=== PATIENT | female | born 1995 | race Caucasian/White ===

== ENCOUNTER 2021-06-10 08:00 | Outpatient (CLI) | payer BC ==
[2021-06-10 16:37] LABS: BILIRUBIN,URINE NEGATIVE (NEGATIVE); GLUCOSE, URINE (UA) NEGATIVE (NEGATIVE); KETONES,URINE (UA) NEGATIVE (NEGATIVE); LEUKOCYTE ESTERASE, URINE NEGATIVE (NEGATIVE); NITRITE,URINE NEGATIVE (NEGATIVE); OCCULT BLOOD,URINE NEGATIVE (NEGATIVE); PROTEIN,URINE NEGATIVE (NEGATIVE); UROBILINOGEN,URINE 0.2 (NORMAL) E.U./dL (NORMAL)
[2021-06-10 16:44] LABS: CLARITY,URINE CLEAR (CLEAR)
[2021-06-10 17:00] LABS: BACTERIA,URINE Moderate /HPF (None Seen); MUCUS,URINE Moderate Strands; RBC,URINE 0-5 /HPF (0-5); SQUAMOUS EPITHELIAL CELL,UR MOD Squamous (<= Few); WBC,URINE 0-3 /HPF (0-5)
== END 2021-06-10 18:55 | disposition home or self-care (01) ==
LOC: LAB.WC 08:00
PROVIDERS: ATTEND Obstetrics & Gynecology
DX: Z32.01 Encounter for pregnancy test, result positive (principal)
CPT/HCPCS: 81001; 87086

== ENCOUNTER 2021-06-20 13:45 | Outpatient (CLI) | payer BC ==
--- NOTE | 2021-06-23 16:22 | Ultrasound Report ---
PROCEDURE: OB First Trimester INDICATIONS: POSITIVE TEST OUTSIDE/PRIOR DATING DATA: Last menstrual period (LMP): 04/27/2021. LMP-based estimated date of delivery (STONE): 02/01/2022. First dating scan (date and location): 06/20/2021. Estimated date of delivery (STONE) from first dating scan: 01/30/2022. The below data below was generated using the ultrasound STONE of 01/30/2022 TECHNIQUE: Real-time scanning was performed of the fetus and maternal pelvic organs, with image documentation. COMPARISON: None FINDINGS: Embryo: [place]-rump length measures 1.58 cm, 8 weeks 0 days. Heart rate: 148/m Measurement variability in dating: +/- 4 weeks by LMP, +/- 7 days by mean sac diameter (use before 6 weeks gestation if crown-rump length not able to be measured), +/- 5 days by crown-rump length (6-12 weeks gestation). Maternal organs: Ovaries are unremarkable. IMPRESSION: Living first trimester intrauterine with crown-rump length and heart beat measuring 8 weeks 0 days Reviewed by: Ray Woodward MD on 06/23/2021 4:20 PM PDT Approved by: Ray Woodward MD on 06/23/2021 4:20 PM PDT Station ID: [id number]
== END 2021-06-20 13:46 | disposition home or self-care (01) ==
LOC: DI 13:45
PROVIDERS: ATTEND Obstetrics & Gynecology
DX: Z32.01 Encounter for pregnancy test, result positive (principal)

== ENCOUNTER 2021-07-08 12:37 | Outpatient (CLI) | payer BC ==
[2021-07-08 13:04] LABS: BASOPHILS # (AUTO) 0.1 10^3/uL (0.0-0.1); BASOPHILS % (AUTO) 0.7 %; EOSINOPHILS # (AUTO) 0.3 10^3/uL (0.0-0.7); EOSINOPHILS % (AUTO) 2.7 %; HCT - HEMATOCRIT 40.2 % (37.0-47.0); HGB - HEMOGLOBIN 13.7 g/dL (12.0-16.0); LYMPHOCYTES # (AUTO) 2.6 10^3/uL (1.5-3.5); LYMPHOCYTES % (AUTO) 24.4 %; MEAN CORPUSCULAR HGB CONC 34.1 g/dL (32.0-36.0); MEAN CORPUSCULAR VOLUME 88.2 fL (81.0-99.0); MEAN PLATELET VOLUME 9.1 fL (7.9-10.8); MONOCYTES # (AUTO) 0.6 10^3/uL (0.0-1.0); NEUTROPHILS # (AUTO) 7.1 10^3/uL (1.5-6.6); NEUTROPHILS % (AUTO) 65.9 %; PLT - PLATELET COUNT 365 10^3/uL (130-450); RED BLOOD COUNT 4.56 10^6/uL (4.20-5.40); RED CELL DISTRIBUTION WIDTH 12.8 % (12.0-15.0); WHITE BLOOD COUNT 10.7 x10^3/uL (4.8-10.8)
[2021-07-09 13:17] LABS: HEPATITIS B SURFACE ANTIGEN NON-REACTIVE (NON-REACTIVE); HEPATITIS C ANTIBODY NON-REACTIVE (NON-REACTIVE)
[2021-07-11 10:02] LABS: HIV AG/AB 4TH GEN NON-REACTIVE (NON-REACTIVE)
== END 2021-07-08 12:38 | disposition home or self-care (01) ==
LOC: LAB 12:37
PROVIDERS: ATTEND Obstetrics & Gynecology
DX: Z34.90 Encounter for supervision of normal pregnancy, unspecified, unspecified trimester (principal); Z36.89 Encounter for other specified antenatal screening
CPT/HCPCS: 36415; 81001; 85025; 86592; 86762; 86787; 86803; 86850; 86900; 86901; 87086; 87340; 87389

== ENCOUNTER 2021-07-08 16:26 | Outpatient (CLI) | payer BC ==
[2021-07-08 16:41] LABS: BILIRUBIN,URINE NEGATIVE (NEGATIVE); GLUCOSE, URINE (UA) NEGATIVE (NEGATIVE); KETONES,URINE (UA) NEGATIVE (NEGATIVE); LEUKOCYTE ESTERASE, URINE NEGATIVE (NEGATIVE); NITRITE,URINE NEGATIVE (NEGATIVE); OCCULT BLOOD,URINE NEGATIVE (NEGATIVE); PROTEIN,URINE NEGATIVE (NEGATIVE); UROBILINOGEN,URINE 0.2 (NORMAL) E.U./dL (NORMAL)
[2021-07-08 16:48] LABS: BACTERIA,URINE Many /HPF (None Seen); CLARITY,URINE CLEAR (CLEAR); RBC,URINE None Seen /HPF (0-5); SQUAMOUS EPITHELIAL CELL,UR FEW Squamous (<= Few); WBC,URINE 0-3 /HPF (0-5)
== END 2021-07-08 16:27 | disposition home or self-care (01) ==
LOC: LAB.R 16:26
PROVIDERS: ATTEND Obstetrics & Gynecology
DX: Z34.90 Encounter for supervision of normal pregnancy, unspecified, unspecified trimester (principal); Z36.89 Encounter for other specified antenatal screening
CPT/HCPCS: 81001; 87086

== ENCOUNTER 2021-08-12 14:45 | Outpatient (CLI) | payer BC ==
[2021-08-15 08:51] LABS: AFP MOM 0.51; AGE RISK DOWN SYNDROME 1 IN 1092; CALC'D GESTATIONAL AGE 15.3 weeks; CIGARETTE SMOKER? NOT GIVEN; DONOR AGE: EGG RETRIEVAL NOT GIVEN; DONOR EGG NO; ESTRIOL MOM 1.57; HCG MOM 1.14; HX OF NEURAL TUBE DEFECTS NO; INHIBIN A MOM 1.14; INSULIN DEPEND DIABETIC NO; MATERNAL WEIGHT 166 lbs; MSS DOWN SYNDROME RISK 1 IN 1181; MSS3 TRISOMY 18 RISK <1 IN 5000; NUMBER OF FETUSES 1; PREV PREGNANCY DOWN SYND NO; RISK FOR ONTD <1 IN 5000
== END 2021-08-12 14:46 | disposition home or self-care (01) ==
LOC: LAB 14:45
PROVIDERS: ATTEND Obstetrics & Gynecology
DX: O09.90 Supervision of high risk pregnancy, unspecified, unspecified trimester (principal)
CPT/HCPCS: 36415; 81511

== ENCOUNTER 2021-09-14 13:36 | Outpatient (CLI) | payer BC ==
--- NOTE | 2021-09-14 17:26 | Ultrasound Report ---
PROCEDURE: OB Detailed Eval INDICATIONS: SUPERVISION HIGH [facility] OUTSIDE/PRIOR DATING DATA: Last menstrual period (LMP): 04/27/2021. LMP-based estimated date of delivery (STONE): 02/01/2022. First dating scan (date and location): 06/20/2021. Estimated date of delivery (STONE) from first dating scan: 01/30/2022. The below data below was generated using the ultrasound STONE of 01/30/2022 TECHNIQUE: Real-time scanning was performed of the fetus, with image documentation and biometric measurements. Endovaginal scanning: Not performed COMPARISON: 06/20/2021 FINDINGS: General: A single living intrauterine gestation is present. Presentation: Vertex Placenta: Placental position is posterior, without previa. Amniotic fluid index: 9.7 cm cm. Largest vertical pocket measured 3.1 cm heart rate: 152 beats per minute. Maternal cervical canal: 4.2 cm long; normal length is 2.5 cm or more. biometrics: Biparietal diameter: 5.04 cm, correlating with 21 weeks and 2 days Head circumference: 18.03 cm, correlating with 20 weeks and 3 days Abdominal circumference: 15.33 cm, correlating with 20 weeks and 4 days Femur length: 3.05 cm, correlating with 19 weeks and 3 days Estimated gestational age from initial scan: 20 weeks and 2 days. Composite gestational age from present scan: 20 weeks and 4 days Estimated weight and percentile: 333 [address] which [address] the fetus within the 36th percentile for g estational age. Measurement variability in biometric dating: +/- 10 days from 12-20 weeks gestation, +/- 2 weeks from 20-30 weeks gestation, +/- 3 weeks at 30 weeks gestation or later. Anatomic survey: Neuro: Ventricles are normal at less than 10 mm. Cisterna magna is normal at 3-11 mm. Cerebellum i s normal in size and morphology. Nuchal skin fold: Normal at less than 6 mm between 14 and 20 weeks gestational age. Face: Nose and lips, facial profile are normal. Spine: Limited evaluation of the spine secondary to positioning throughout the duration o f the study. Heart: 4-chambered heart is present, with normal ventricular outflow tracts. Diaphragm: Diaphragm is intact. Stomach: Left-sided stomach is present. Kidneys: No hydronephrosis. Normal is less than 5 mm in 2nd trimester, less than 7 mm in 3rd trimester. Cord: 3 vessel cord has orthotopic insertion. Bladder: Normal in size. Extremities: All 4 extremities are visualized. IMPRESSION: 1. Single living intrauterine gestation with estimated sonographic gestational age of approximately 2 0 weeks and 4 days which measures concordantly with gestational age by initial dating ultrasound of a pproximately 20 weeks and 2 days. 2. Estimated weight of approximately 333 g which [address] the fetus within the 36th percentile fo r gestational age. 3. Possible low four-quadrant STIVEN measuring 9.7 cm with largest vertical pocket of 3.1 cm. Follow-up recommended. 4. Limited evaluation the spine secondary to positioning during this evaluation. Follow-u p imaging recommended. Otherwise, unremarkable second trimester anatomic screening survey. Reviewed by: Apollo Guan MD on 09/14/2021 5:25 PM PST Approved by: Apollo Guan MD on 09/14/2021 5:25 PM PST Station ID: [id number]
== END 2021-09-14 13:37 | disposition home or self-care (01) ==
LOC: DI 13:36
PROVIDERS: ATTEND Obstetrics & Gynecology
DX: O09.92 Supervision of high risk pregnancy, unspecified, second trimester (principal); Z3A.20 20 weeks gestation of pregnancy

== ENCOUNTER 2021-09-20 18:17 | Outpatient (CLI) | payer BC ==
--- NOTE | 2021-09-21 15:49 | Ultrasound Report ---
PROCEDURE: OB F/U or Repeat INDICATIONS: SUPERVISION HIGH [facility] OUTSIDE/PRIOR DATING DATA: Last menstrual period (LMP): 04/27/2021. LMP-based estimated date of delivery (STONE): 02/01/2022. First dating scan (date and location): 06/20/2021. Estimated date of delivery (STONE) from first dating scan: 01/30/2022. The below data below was generated using the ultrasound STONE of 01/30/2022. TECHNIQUE: Real-time scanning was performed of the fetus, with image documentation and biometric measurements. Endovaginal scanning: Not performed. COMPARISON: OB ultrasound, 09/14/2021 and 06/20/2021. FINDINGS: General: A single living intrauterine gestation is present. Presentation: Vertex Placenta: Placental position is posterior, without previa. Amniotic fluid index: 11.1 cm; largest pocket measuring 3.7 cm. heart rate: 147 beats per minute. Maternal cervical canal: 4.6 cm long; normal length is 2.5 cm or more. biometrics: Not performed. Estimated gestational age from initial scan: 21 weeks 1 day. Measurement variability in biometric dating: +/- 10 days from 12-20 weeks gestation, +/- 2 weeks from 20-30 weeks gestation, +/- 3 weeks at 30 weeks gestation or more. Other: spine is grossly normal. IMPRESSION: 1. Single living IUP is again demonstrated. 2. spine is well seen and appears normal. 3. STIVEN 11.1 cm with the largest pocket 3.7 cm. Reviewed by: Emilia Aquino MD on 09/21/2021 3:48 PM PST Approved by: Emilia Aquino MD on 09/21/2021 3:48 PM PST Station ID: [id number]
== END 2021-09-20 18:18 | disposition home or self-care (01) ==
LOC: DI 18:17
PROVIDERS: ATTEND Obstetrics & Gynecology
DX: O09.92 Supervision of high risk pregnancy, unspecified, second trimester (principal); Z3A.21 21 weeks gestation of pregnancy

== ENCOUNTER 2021-10-27 16:40 | Outpatient (CLI) | payer BC ==
[2021-10-27 17:03] VITALS: BP 135/86
--- NOTE | 2021-10-27 17:36 | PROCEDURE REPORT ---
- HPI Current EDU 02/01/22 Gestation 26 Weeks and 1 Days 1 Para 0 Vital Signs Temperature 98.2 F 10/27/21 16:48 Heart Rate 104 H 10/27/21 16:48 Respiratory Rate 16 10/27/21 16:48 Blood Pressure 138/85 H 10/27/21 16:48 O2 Saturation 100 10/27/21 16:48 Temperature 98.2 F 10/27/21 17:01 Heart Rate 104 H 10/27/21 16:48 Respiratory Rate 16 10/27/21 16:48 Blood Pressure 135/86 H 10/27/21 17:03 O2 Saturation 100 10/27/21 16:48 - NST Procedure NST Procedure Start Date 10/27/21 Start Time 16:45 Stop Time 17:05 Vibroacoustic Stimulation Used No Patient States Movement Yes: decreased EFM 140 mod rohit 10x10 accels once decel; Appropriate for gestational age TOCO: Quiet - Results and Plan Findings/Impression: 25 yo at 26+1 wga present for decreased movement NST is appropriate for gestational age (CAT I /AGA) movement audible on doppler Reviewed kick counts and warning signs DC to home
== END 2021-10-27 17:10 | disposition home or self-care (01) ==
LOC: WFO 16:40 → FBP 16:41 → WFO 17:10
PROVIDERS: ATTEND Obstetrics & Gynecology
DX: O36.8120 Decreased fetal movements, second trimester, not applicable or unspecified (principal); Z3A.26 26 weeks gestation of pregnancy
CPT/HCPCS: 59025; 99213

== ENCOUNTER 2021-11-11 07:49 | Outpatient (CLI) | payer BC ==
[2021-11-11 09:02] LABS: HCT - HEMATOCRIT 37.3 % (37.0-47.0); HGB - HEMOGLOBIN 12.5 g/dL (12.0-16.0); MEAN CORPUSCULAR HEMOGLOBIN 30.5 pg (27.0-31.0); MEAN CORPUSCULAR HGB CONC 33.5 g/dL (32.0-36.0); MEAN PLATELET VOLUME 8.9 fL (7.9-10.8); RED BLOOD COUNT 4.1 10^6/uL (4.20-5.40); RED CELL DISTRIBUTION WIDTH 13.4 % (12.0-15.0); WHITE BLOOD COUNT 10.4 x10^3/uL (4.8-10.8)
== END 2021-11-11 07:50 | disposition home or self-care (01) ==
LOC: LAB 07:49
PROVIDERS: ATTEND Obstetrics & Gynecology
DX: O09.90 Supervision of high risk pregnancy, unspecified, unspecified trimester (principal); Z36.89 Encounter for other specified antenatal screening
CPT/HCPCS: 36415; 82950; 85027

== ENCOUNTER 2021-11-17 14:42 | Outpatient (CLI) | payer BC ==
--- NOTE | 2021-11-17 17:02 | Ultrasound Report ---
PROCEDURE: OB F/U or Repeat INDICATIONS: UTERINE SIZE DATE DISCREPANCY OUTSIDE/PRIOR DATING DATA: Last menstrual period (LMP): 04/27/2021. LMP-based estimated date of delivery (STONE): 02/01/2022. First dating scan (date and location): 06/20/2021. Estimated date of delivery (STONE) from first dating scan: 01/30/2022. TECHNIQUE: Real-time scanning was performed of the fetus, with image documentation and biometric measurements. Endovaginal scanning: None COMPARISON: None. FINDINGS: General: A single living intrauterine gestation is present. Presentation: Cephalic Placenta: Placental position is posterior, without previa. Amniotic fluid index: 9.7 cm heart rate: 14 beats per minute. Maternal cervical canal: 3.8 cm long; normal length is 2.5 cm or more. biometrics: Biparietal diameter: 82 mm; 32 weeks 5 days Head circumference: 293 mm; 32 weeks 2 days Abdominal circumference: 264 mm; 30 weeks 4 days Femur length: 53 mm; 28 weeks 0 days Estimated gestational age from initial scan: 29 weeks 3 days Composite gestational age from present scan: 30 weeks 6 days Estimated weight and percentile: 1509 g, which is at the 62nd percentile for gestational age. Measurement variability in biometric dating: +/- 10 days from 12-20 weeks gestation, +/- 2 weeks from 20-30 weeks gestation, +/- 3 weeks at 30 weeks gestation or more. Other: Not applicable. IMPRESSION: 1. Single living intrauterine gestation. 2. Appropriate interval growth. Reviewed by: Melinda Martinez MD on 11/17/2021 5:01 PM PDT Approved by: Melinda Martinez MD on 11/17/2021 5:01 PM PDT Station ID: [id number]
== END 2021-11-17 14:43 | disposition home or self-care (01) ==
LOC: DI 14:42
PROVIDERS: ATTEND Obstetrics & Gynecology
DX: O26.843 Uterine size-date discrepancy, third trimester (principal); Z3A.30 30 weeks gestation of pregnancy

== ENCOUNTER 2021-12-16 08:00 | Outpatient (CLI) | payer BC | END 2021-12-16 23:59 | disposition home or self-care (01) | LOC: LAB 08:00 | PROVIDERS: ATTEND Obstetrics & Gynecology | DX: Z36.85 Encounter for antenatal screening for Streptococcus B (principal) | CPT/HCPCS: 87797 ==

== ENCOUNTER 2022-01-04 16:03 | Inpatient (IN) | payer BC ==
[2022-01-04] MEDS ORDERED: SODIUM CHLORIDE FLUSH 0.9% 10 ML SYRINGE IVP PRN (16:34)
[2022-01-04] MEDS ORDERED: SODIUM CHLORIDE FLUSH 0.9% 10 ML SYRINGE IVP SCH (17:00)
[2022-01-04] MEDS ORDERED: LACTATED RINGERS 1,000 ML IV SCH ×3 (17:00→20:00)
--- NOTE | 2022-01-04 17:36 | HISTORY & PHYSICAL EXAMINATION ---
Admit History - Visit Reason Visit Reason: Contractions - : 1 Parity: 0 Risk/History: positive: Other (Prior uterine surgery for fibroids) - Mother's Labs Mother's Blood Type: positive: A Mother's RH: positive: Positive GBS: positive: Group B Step Negative Rubella Status: positive: Immune - Other Maternal History Other Maternal History: CC- "cramping" HPI- Patient presents with complaints of pelvic cramping which she is noted since yesterday morning. She reports the cramping radiates to her back. The cramping comes and goes. She took Tylenol yesterday without relief. She notes positive movement. She denies leakage of fluid or vaginal bleeding. She denies fevers or chills. She denies urinary frequency or dysuria. She has a history of uterine surgery for fibroids 1 year ago. PMH- denies PSH- Prior uterine surgery for fibroids MED- PNV Allergies- NKDA Review of Systems - Constitutional Constitutional: denies: Fever, Chills - Respiratory Respiratory: denies: SOB at rest, SOB with exertion - Other Findings Other Findings: Brisk lower extremity reflexes bilaterally Physical - Abdominal Exam Vital Signs: Temp Pulse Resp BP Pulse Ox 98.8 F 123 H 20 135/90 H 99 01/04/22 16:20 01/04/22 16:20 01/04/22 16:20 01/04/22 16:20 01/04/22 16:20 Contraction Frequency (min/apart): 2-5 - Monitoring Heart Rate Baseline: 170 Strip Review: positive: Category II - Presentation Presentation: positive: Vertex - Vaginal Exam Membranes: positive: Membranes intact Dilation (in cm): 0 Plan for Labor - Plan For Labor Plan for Labor: 26-year-old at 36 weeks 0 days who presents with complaints of abdominal cramping found to have contractions # contractionspatient at 37 weeks irregular contractions noted however patient has history of prior uterine surgery. #History of uterine surgerypatient reportedly had extensive surgery for fibroids. Plan for delivery was made for 37 weeks. As patient now has painful contractions we will proceed with primary section due to risk of uterine rupture. OR team notified of need for urgent procedure. Patient couns eled on risk including the risk of infection bleeding and damage to surrounding organs. She was also counseled regarding the risk of hysterectomy in the event of hemorrhage. Consents were signed and all questions answered. # tachycardiatachycardia noted to the 170s to 180s as well as maternal tachycardia to the 130s to 140s. IV hydration started. EKG ordered. # Elevated BP- BP noted to be 130-140's/ 70-90's. Brisk reflexes, PreE labs ordered.
[2022-01-04] MEDS ORDERED: BETAMETHASONE 30 MG/5 ML VIAL IM ONE (17:39)
[2022-01-04 18:16] LABS: BASOPHILS % (AUTO) 0.4 %; EOSINOPHILS # (AUTO) 0.2 10^3/uL (0.0-0.7); EOSINOPHILS % (AUTO) 1.6 %; HCT - HEMATOCRIT 40.8 % (37.0-47.0); HGB - HEMOGLOBIN 13.6 g/dL (12.0-16.0); MEAN CORPUSCULAR HGB CONC 33.3 g/dL (32.0-36.0); MEAN CORPUSCULAR VOLUME 89.9 fL (81.0-99.0); MEAN PLATELET VOLUME 9.5 fL (7.9-10.8); MONOCYTES # (AUTO) 0.8 10^3/uL (0.0-1.0); MONOCYTES % (AUTO) 8.5 %; NEUTROPHILS # (AUTO) 6.1 10^3/uL (1.5-6.6); PLT - PLATELET COUNT 329 10^3/uL (130-450); RED BLOOD COUNT 4.54 10^6/uL (4.20-5.40); RED CELL DISTRIBUTION WIDTH 13.6 % (12.0-15.0); WHITE BLOOD COUNT 9.1 x10^3/uL (4.8-10.8)
[2022-01-04] MEDS ORDERED: fentaNYL 100 MCG/2 ML VIAL ONE (18:23)
[2022-01-04 18:24] LABS: BILIRUBIN,URINE NEGATIVE (NEGATIVE); GLUCOSE, URINE (UA) NEGATIVE (NEGATIVE); KETONES,URINE (UA) NEGATIVE (NEGATIVE); LEUKOCYTE ESTERASE, URINE NEGATIVE (NEGATIVE); NITRITE,URINE NEGATIVE (NEGATIVE); OCCULT BLOOD,URINE TRACE-INTA (NEGATIVE); PH,URINE 6.5 PH (5.0-7.5); PROTEIN,URINE NEGATIVE (NEGATIVE); UROBILINOGEN,URINE 0.2 (NORMAL) E.U./dL (NORMAL)
[2022-01-04] MEDS ORDERED: MORPHINE PF 5 MG/10 ML VIAL ONE (18:24)
[2022-01-04] MEDS ORDERED: ePHEDrine 50 MG/ML VIAL IVP ONE (18:27)
[2022-01-04] MEDS ORDERED: SODIUM CHLORIDE 0.9% 10 ML VIAL IVP ONE (18:27)
[2022-01-04] MEDS ORDERED: PHENYLEPHRINE 10 MG/ML VIAL ONE (18:27)
[2022-01-04 18:36] LABS: ALBUMIN 3.3 g/dL (3.2-5.5); ALBUMIN/GLOBULIN RATIO 0.9 (1.0-2.2); BILIRUBIN,TOTAL 0.3 mg/dL (0.2-1.0); CREATININE 0.4 mg/dL (0.4-1.0); POTASSIUM 3.5 mmol/L (3.5-5.0); TOTAL PROTEIN 6.9 g/dL (6.7-8.2)
[2022-01-04] MEDS ORDERED: MORPHINE PF 5 MG/10 ML VIAL IT ONE (18:36)
[2022-01-04] MEDS ORDERED: fentaNYL 100 MCG/2 ML VIAL IT ONE (18:36)
--- NOTE | 2022-01-04 18:46 | ANESTHESIA ---
Pre-Anesthesia VS, & Labs - Diagnosis contractions, maternal tachycardia, tachycardia - Procedure primary c/s Vital Signs: Temp Pulse Resp BP Pulse Ox 37.1 C 123 H 20 135/90 H 99 01/04/22 16:20 01/04/22 16:20 01/04/22 16:20 01/04/22 16:20 01/04/22 16:20 Height: 5 ft 2 in - NPO Last Fluid Intake: lunch - Is Patient ?: Yes - Lab Results Current Lab Results: Laboratory Tests 01/04/22 18:20: Sodium 134 L, Potassium 3.5, Chloride 104, Carbon Dioxide 20 L, Anion Gap 10.0, BUN 6, Creatinine 0.4, Estimated GFR (MDRD) 196, Glucose 147 H, Calcium 9.0, Total Bilirubin 0.3, AST 17, ALT 16, Alkaline Phosphatase 145 H, Total Protein 6.9, Albumin 3.3, Globulin 3.6, Albumin/Globulin Ratio 0.9 L 01/04/22 17:20: WBC 9.1, RBC 4.54, Hgb 13.6, Hct 40.8, MCV 89.9, MCH 30.0, MCHC 33.3, RDW 13.6, Plt Count 329, MPV 9.5, Neut # (Auto) 6.1, Lymph # (Auto) 2.0, [place] # (Auto) 0.8, Eos # (Auto) 0.2, Baso # (Auto) 0.0, Absolute Nucleated RBC 0.00, Nucleated RBC % 0.0 Lab results reviewed: Yes Fish Bones: 01/04/22 17:20 01/04/22 18:20 Home Medications and Allergies Active Medications Lactated Ringer's (Lr) 1,000 mls @ 125 mls/hr IV .Q8H [facility] Last Admin: 01/04/22 17:46 Dose: 125 mls/hr Cefazolin Sodium 2 gm/ Sodium (Chloride) 50 mls @ 100 mls/hr IV ONCE ONE Stop: 01/04/22 18:59 Sodium Chloride (Sodium Chloride Flush 0.9% 10 Ml Syringe) 10 ml IVP PRN PRN PRN Reason: NEEDED PER PROVIDER ORDERS Sodium Chloride (Sodium Chloride Flush 0.9% 10 Ml Syringe) 10 ml IVP Q8H [facility] Anes History & Medical History - Anesthetic History Anesthesia Complications: reports: No previous complications Family history of Anesthesia Complications: Denies Family history of Malignant Hyperthermia: Denies - Medical History Cardiovascular: reports: None, Hypertension - Obstetrical History : 1 Parity: 0 Events: reports: Other (Prior uterine surgery for fibroids) Exam General: Alert, Oriented x3, Cooperative Dental: WNL Mouth Openin Fingerbreadth Neck Mobility: Normal Mallampati classification: II Respiratory: Lungs clear Cardiovascular: Regular rate (tachy) Neurological: Normal speech Mental/Cognitive Status: Alert/Oriented X3, Normal for patient Plan Anesthesia Type: Spinal Regional Block: Per Surgeon's request for Post Op pain control Consent for Procedure(s) Verified and Reviewed: Yes Code Status: Attempt Resuscitation ASA classification: 2-Mild systemic disease Is this case an emergency?: Yes
[2022-01-04] MEDS ORDERED: ONDANSETRON 4 MG/2 ML VIAL ONE (18:47)
[2022-01-04 18:48] LABS: CLARITY,URINE CLEAR (CLEAR)
[2022-01-04] MEDS ORDERED: OXYTOCIN 10 UNIT/ML VIAL ONE (18:53)
[2022-01-04 19:07] LABS: CREATININE,URINE 48.2 mg/dL
[2022-01-04 19:08] LABS: TOTAL PROTEIN,URINE TIMED < 6 mg/dL
[2022-01-04] MEDS ORDERED: diphenhydrAMINE INJ 50 MG/ML VIAL IVP PRN (19:15)
[2022-01-04] MEDS ORDERED: NALOXONE 0.4 MG/ML VIAL IVP PRN ×3 (19:15→19:35)
[2022-01-04] MEDS ORDERED: METOCLOPRAMIDE 10 MG/2 ML VIAL IVP PRN ×2 (19:15→19:17)
[2022-01-04] MEDS ORDERED: ePHEDrine 50 MG/ML VIAL IVP PRN ×2 (19:15→19:17)
[2022-01-04] MEDS ORDERED: ONDANSETRON 4 MG/2 ML VIAL IVP PRN ×2 (19:15→19:17)
[2022-01-04] MEDS ORDERED: NALBUPHINE 10 MG/ML AMP IVP PRN (19:15)
[2022-01-04] MEDS ORDERED: ACETAMINOPHEN 1,000 MG/100 ML 100 ML IV ONE (19:16)
[2022-01-04] MEDS ORDERED: HYDROmorphone 0.5 MG/0.5 ML SYRINGE IVP PRN (19:17)
[2022-01-04] MEDS ORDERED: fentaNYL 100 MCG/2 ML VIAL IVP PRN (19:17)
[2022-01-04] MEDS ORDERED: MORPHINE 2 MG/ML CARPUJECT IVP PRN (19:17)
[2022-01-04] MEDS ORDERED: ATROPINE ABBOJECT 1 MG/10 ML SYRINGE IVP PRN (19:17)
[2022-01-04] MEDS ORDERED: KETOROLAC 30 MG/ML VIAL ONE (19:28)
[2022-01-04] MEDS ORDERED: HYDROmorphone 2 MG TABLET PO PRN (19:35)
[2022-01-04] MEDS ORDERED: NIFEdipine 10 MG CAPSULE PO PRN (19:35)
[2022-01-04] MEDS ORDERED: OXYTOCIN/SODIUM CHLORIDE 500 ML IV PRN (19:35)
[2022-01-04] MEDS ORDERED: LABETALOL 20 MG/4 ML SYRINGE IVP PRN ×3 (19:35)
[2022-01-04] MEDS ORDERED: oxyCODONE 5 MG TABLET PO PRN (19:35)
[2022-01-04] MEDS ORDERED: hydrALAZINE INJ 20 MG/ML VIAL IVP PRN ×2 (19:35)
--- NOTE | 2022-01-04 19:51 | ANESTHESIA POST OP EVALUATION ---
Anesthesia Post Eval - Post Anesthesia Eval Vitals: Last Vital Signs Temp 37.1 C 01/04/22 19:18 Pulse 123 H 01/04/22 16:20 Resp 20 01/04/22 16:20 BP 135/90 H 01/04/22 16:20 Pulse Ox 99 01/04/22 16:20 CV Function Including HR & BP: Stable Pain Control: Satisfactory Nausea & Vomiting: Negative Mental Status: Baseline Respiratory Status: Airway Patent Hydration Status: Satisfactory Anesthesia Complications: None
--- NOTE | 2022-01-04 19:55 | DELIVERY NOTE ---
Delivery Note - Labor Labor: positive: Spontaneous - Delivery Method Delivery Method: positive: Primary - Presentation Presentation: positive: Vertex - Nuchal Cord Nuchal Cord: positive: None - Anesthetic Anesthetic Type: - Amniotic Fluid Description Amniotic Fluid Description: positive: Clear - Delivery Outcome Delivery Outcome: positive: Livebirth - [place]: positive: Bulb syringe, Stimulated sex: positive: Male - Cord Cord: positive: 3 vessels - Placenta Placenta: positive: Intact - Estimated Blood Loss Estimated Blood Loss (in cc): 1,000 - Post Delivery Events Post Delivery Events: positive: No post delivery events - Delivery Comments (Free Text/Narrative) Delivery Comments (Free Text/Narrative): The patient presented at 36 weeks with contractions and history of a prior uterine surgery. She was also noted to have and maternal tachycardia. Decision was made to proceed with primary section. Following informed consent she was taken to the operating room. Spinal anesthesia was initiated. She was placed in supine position and prepped and draped in the usual sterile fashion. The previous Fenistil incision was incised and taken down to the level of the fascia. The fascia was incised at the midline. The fascia was from the rectus muscle superiorly and inferiorly. The rectus muscle was at the midline. The peritoneal cavity was entered bluntly with care taken to avoid injury to underlying structures.An [place] retractor was placed to facilitate visualization. The vesicouterine reflection was developed sharply with care taken to avoid injury to the bladder. A low transverse hysterotomy was made. The hysterotomy was extended laterally and superiorly with digits. The head was brought to the hysterotomy. Amniotomy was performed. The head was delivered without difficulty followed subsequently by the remainder of the baby. The baby was vigorous at delivery. Cord clamping was delayed for 1 minute. The oropharynx was suctioned. The cord was clamped and cut and the baby passed onto the awaiting pediatrics team. A cord segment was obtained for cord gases. Cord blood was obtained. The placenta was delivered with fundal massage. The endometrial cavity was cleaned x2 using moist laps. The hysterotomy was closed using chromic suture in a continuous locking fashion. Hemostasis was noted. The peritoneal cavity was copiously irrigated. A small area of serous bleeding was made hemostatic using electrocautery. Surgicel was placed. All instruments were removed. The fascia was closed using PDS suture. The skin was closed using dissolvable efrain and dressed with Mastisol and Steri-Strips. The patient remained in stable condition.
--- NOTE | 2022-01-04 19:59 | OPERATIVE REPORT ---
Operative Report - General Admit Date: 01/04/22 Planned Procedure: Primary section Pre-Op Diagnosis: 36 weeks gestation, contractions, History of prior uterine surgery Procedure Performed: Primary Low Transverse Section Post Op Diagnosis: Same - Procedure Note Primary Surgeon: Guerline Monson MD Secondary Surgeon: [place] Harry MD Anesthesia Provider: BAILEY Vega Anesthesia Technique: Spinal Estimated Blood Loss (mL): 1,000 Findings: normal appearing uterus, bilateral fallopian tubes and ovaries Complications: None - Other Other Information/Narrative: The patient presented at 36 weeks with contractions and history of a prior uterine surgery. She was also noted to have and maternal tachycardia. Decision was made to proceed with primary section. Following informed consent she was taken to the operating room. Spinal anesthesia was initiated. She was placed in supine position and prepped and draped in the usual sterile fashion. The previous Fenistil incision was incised and taken down to the level of the fascia. The fascia was incised at the midline. The fascia was from the rectus muscle superiorly and inferiorly. The rectus muscle was at the midline. The peritoneal cavity was entered bluntly with care taken to avoid injury to underlying structures.An [place] retractor was placed to facilitate visualization. The vesicouterine reflection was developed sharply with care taken to avoid injury to the bladder. A low transverse hysterotomy was made. The hysterotomy was extended laterally and superiorly with digits. The head was brought to the hysterotomy. Amniotomy was performed. The head was delivered without difficulty followed subsequently by the remainder of the baby. The baby was vigorous at delivery. Cord clamping was delayed for 1 minute. The oropharynx was suctioned. The cord was clamped and cut and the baby passed onto the awaiting pediatrics team. A cord segment was obtained for cord gases. Cord blood was obtained. The placenta was delivered with fundal massage. The endometrial cavity was cleaned x2 using moist laps. The hysterotomy was closed using chromic suture in a continuous locking fashion. Hemostasis was noted. The peritoneal cavity was copiously irrigated. A small area of serous bleeding was made hemostatic using electrocautery. Surgicel was placed. All instruments were removed. The fascia was closed using PDS suture. The skin was closed using dissolvable efrain and dressed with Mastisol and Steri-Strips. The patient remained in stable condition. Dr. Harry assisted with the section by retracting instruments and assisting with visualization in order to safely complete the procedure. His assistance was essential.
[2022-01-04] MEDS ORDERED: ACETAMINOPHEN 500 MG TABLET PO SCH (20:00)
--- NOTE | 2022-01-04 20:08 | MISCELLANEOUS PROVIDER NOTE ---
Miscellaneous Provider Note - - Note: Labs reviewed and within normal limits. Urine protein creatinine ratio undetected. Blood pressure currently within normal limits. We will continue to monitor in postoperative state.
[2022-01-04] MEDS ORDERED: DOCUSATE SODIUM 100 MG CAPSULE PO SCH (21:00)
[2022-01-05] MEDS ORDERED: HYDROmorphone 2 MG TABLET PO PRN (02:23)
[2022-01-05] MEDS ORDERED: hydrALAZINE INJ 20 MG/ML VIAL IVP PRN ×2 (02:23→02:27)
[2022-01-05] MEDS ORDERED: LABETALOL 20 MG/4 ML SYRINGE IVP PRN ×4 (02:24→02:27)
[2022-01-05] MEDS ORDERED: NALOXONE 0.4 MG/ML VIAL IVP PRN (02:25)
[2022-01-05] MEDS ORDERED: NIFEdipine 10 MG CAPSULE PO PRN (02:26)
[2022-01-05] MEDS ORDERED: OXYTOCIN/SODIUM CHLORIDE 500 ML IV PRN (02:27)
[2022-01-05] MEDS ORDERED: SODIUM CHLORIDE FLUSH 0.9% 10 ML SYRINGE IVP SCH (03:00)
[2022-01-05] MEDS ORDERED: LACTATED RINGERS 1,000 ML IV SCH (03:00)
[2022-01-05] MEDS: ACETAMINOPHEN 500 MG TABLET PO SCH ×3 (05:09→21:35)
--- NOTE | 2022-01-05 08:34 | PROVIDER PROGRESS NOTE ---
Subjective - Prog Note Date Prog Note Date: 01/05/22 Prog Note Time: 08:32 - Subjective Subjective: Patient has no complaints. Her pain is controlled. Her baby was transferred to [place] overnight. She has been getting updates. Current Medications - Current Medications Current Medications: Active Medications Generic Name Dose Route Start Last Admin Trade Name Freq PRN Reason Stop Dose Admin Acetaminophen 1,000 mg 01/05/22 05:00 01/05/22 05:09 Acetaminophen 500 Mg Tablet PO 1,000 mg Q8H HOLLEY Administration Diphenhydramine HCl 25 mg 01/04/22 19:15 Diphenhydramine Inj 50 Mg/Ml Vial IVP 01/05/22 19:15 Q6H PRN ITCHING Docusate Sodium 200 mg 01/05/22 09:00 Docusate Sodium 100 Mg Capsule PO BID HOLLEY Enoxaparin Sodium 40 mg 01/05/22 09:00 Enoxaparin 40 Mg/0.4 Ml Syringe SUBQ DAILY HOLLEY Hydralazine HCl 5 - 20 mg 01/05/22 02:23 Hydralazine Inj 20 Mg/Ml Vial IVP Q20M PRN SBP> or= 160 OR DBP> or= 110 Protocol Hydromorphone HCl 2 mg 01/05/22 02:23 Hydromorphone 2 Mg Tablet PO Q4HR PRN Severe Pain 6 -10 Lactated Ringer's 1,000 mls @ 100 mls/hr 01/05/22 03:00 01/05/22 06:27 Lr IV 100 mls/hr .Q10H HOLLEY Administration Oxytocin/Sodium Chloride 500 mls @ 999 mls/hr 01/05/22 02:27 Pitocin/Sodium Chloride IV PRN PRN POST- HEMORR PREVENTION Protocol 999 MILLIUNIT/MIN Labetalol HCl 20 - 80 mg 01/05/22 02:24 Labetalol 20 Mg/4 Ml Syringe IVP Q10M PRN SBP> or= 160 OR DBP> or= 110 Protocol Labetalol HCl 20 - 40 mg 01/05/22 02:24 Labetalol 20 Mg/4 Ml Syringe IVP Q10M PRN SBP> or= 160 OR DBP> or= 110 Protocol Labetalol HCl 20 mg 01/05/22 02:25 Labetalol 20 Mg/4 Ml Syringe IVP .ONCE PRN SBP> or= 160 OR DBP> or= 110 Protocol Labetalol HCl 20 - 40 mg 01/05/22 02:27 Labetalol 20 Mg/4 Ml Syringe IVP Q10M PRN SBP> or= 160 OR DBP> or= 110 Protocol Naloxone HCl 0.4 mg 01/05/22 02:25 Naloxone 0.4 Mg/Ml Vial IVP .ONCE PRN Opioid overdose Nifedipine 10 - 20 mg 01/05/22 02:26 Nifedipine 10 Mg Capsule PO Q20M PRN SBP> or= 160 OR DBP> or= 110 Protocol Oxycodone HCl 5 mg 01/05/22 02:26 Oxycodone 5 Mg Tablet PO Q4HR PRN Severe Pain 6 -10 Sodium Chloride 10 ml 01/05/22 03:00 Sodium Chloride Flush 0.9% 10 Ml Syringe IVP Q8H [facility] Objective - Vital Signs/Intake & Output Reviewed Vital Signs: Yes Vital Signs: Vital Signs x48h Temp Pulse Resp BP Pulse Ox 01/05/22 07:30 98.2 F 79 17 111/54 L 97 01/05/22 05:20 97.5 F L 75 16 105/62 100 01/05/22 01:41 97.7 F 74 16 115/61 98 Intake & Output: Intake & Output 01/02/22 01/03/22 01/04/22 01/05/22 23:59 23:59 23:59 23:59 Intake Total 1000 1335 Output Total 870 Balance 1000 465 - Objective General Appearance: positive: No acute distress Respiratory: positive: No respiratory distress Abdomen: positive: Non-tender, No distention Extremities: positive: Non-tender, Pedal edema (1+) Neurologic/Psychiatric: positive: Oriented x3 - Lab Results Fish Bones: 01/04/22 17:20 01/04/22 18:20 Other Labs: Lab Results x24hrs 01/04/22 01/04/22 01/04/22 Range/Units 18:20 17:45 17:45 WBC (4.8-10.8) x10^3/uL RBC (4.20-5.40) 10^6/uL Hgb (12.0-16.0) g/dL Hct (37.0-47.0) % MCV (81.0-99.0) fL MCH (27.0-31.0) pg MCHC (32.0-36.0) g/dL RDW (12.0-15.0) % Plt Count (130-450) 10^3/uL MPV (7.9-10.8) fL Neut # (Auto) (1.5-6.6) 10^3/uL Lymph # (Auto) (1.5-3.5) 10^3/uL [place] # (Auto) (0.0-1.0) 10^3/uL Eos # (Auto) (0.0-0.7) 10^3/uL Baso # (Auto) (0.0-0.1) 10^3/uL Absolute Nucleated RBC x10^3/uL Nucleated RBC % /100WBC Sodium 134 L (135-145) mmol/L Potassium 3.5 (3.5-5.0) mmol/L Chloride 104 (101-111) mmol/L Carbon Dioxide 20 L (21-32) mmol/L Anion Gap 10.0 (6-13) BUN 6 (6-20) mg/dL Creatinine 0.4 (0.4-1.0) mg/dL Estimated GFR (MDRD) 196 (>89) Glucose 147 H (70-100) mg/dL Calcium 9.0 (8.5-10.3) mg/dL Total Bilirubin 0.3 (0.2-1.0) mg/dL AST 17 (10-42) IU/L ALT 16 (10-60) IU/L Alkaline Phosphatase 145 H (42-121) IU/L Total Protein 6.9 (6.7-8.2) g/dL Albumin 3.3 (3.2-5.5) g/dL Globulin 3.6 (2.1-4.2) g/dL Albumin/Globulin Ratio 0.9 L (1.0-2.2) Urine Color YELLOW Urine Clarity CLEAR (CLEAR) Urine pH 6.5 (5.0-7.5) PH Ur Specific [place] 1.010 (1.002-1.030) Urine Protein NEGATIVE (NEGATIVE) mg/dL Urine Glucose (UA) NEGATIVE (NEGATIVE) mg/dL Urine Ketones NEGATIVE (NEGATIVE) mg/dL Urine Occult Blood TRACE-INTA (NEGATIVE) Urine Nitrite NEGATIVE (NEGATIVE) Urine Bilirubin NEGATIVE (NEGATIVE) Urine Urobilinogen 0.2 (NORMAL) (NORMAL) E.U./dL Ur Leukocyte Esterase NEGATIVE (NEGATIVE) Ur Microscopic Review NOT INDICATED Urine Culture Comments NOT INDICATED Urine Creatinine 48.2 mg/dL Ur Total Protein Timed < 6 mg/dL Protein/Creatinin Ratio Not Reportable Blood Type Antibody Screen 01/04/22 01/04/22 Range/Units 17:20 17:20 WBC 9.1 (4.8-10.8) x10^3/uL RBC 4.54 (4.20-5.40) 10^6/uL Hgb 13.6 (12.0-16.0) g/dL Hct 40.8 (37.0-47.0) % MCV 89.9 (81.0-99.0) fL MCH 30.0 (27.0-31.0) pg MCHC 33.3 (32.0-36.0) g/dL RDW 13.6 (12.0-15.0) % Plt Count 329 (130-450) 10^3/uL MPV 9.5 (7.9-10.8) fL Neut # (Auto) 6.1 (1.5-6.6) 10^3/uL Lymph # (Auto) 2.0 (1.5-3.5) 10^3/uL [place] # (Auto) 0.8 (0.0-1.0) 10^3/uL Eos # (Auto) 0.2 (0.0-0.7) 10^3/uL Baso # (Auto) 0.0 (0.0-0.1) 10^3/uL Absolute Nucleated RBC 0.00 x10^3/uL Nucleated RBC % 0.0 /100WBC Sodium (135-145) mmol/L Potassium (3.5-5.0) mmol/L Chloride (101-111) mmol/L Carbon Dioxide (21-32) mmol/L Anion Gap (6-13) BUN (6-20) mg/dL Creatinine (0.4-1.0) mg/dL Estimated GFR (MDRD) (>89) Glucose (70-100) mg/dL Calcium (8.5-10.3) mg/dL Total Bilirubin (0.2-1.0) mg/dL AST (10-42) IU/L ALT (10-60) IU/L Alkaline Phosphatase (42-121) IU/L Total Protein (6.7-8.2) g/dL Albumin (3.2-5.5) g/dL Globulin (2.1-4.2) g/dL Albumin/Globulin Ratio (1.0-2.2) Urine Color Urine Clarity (CLEAR) Urine pH (5.0-7.5) PH Ur Specific [place] (1.002-1.030) Urine Protein (NEGATIVE) mg/dL Urine Glucose (UA) (NEGATIVE) mg/dL Urine Ketones (NEGATIVE) mg/dL Urine Occult Blood (NEGATIVE) Urine Nitrite (NEGATIVE) Urine Bilirubin (NEGATIVE) Urine Urobilinogen (NORMAL) E.U./dL Ur Leukocyte Esterase (NEGATIVE) Ur Microscopic Review Urine Culture Comments Urine Creatinine mg/dL Ur Total Protein Timed mg/dL Protein/Creatinin Ratio Blood Type A POSITIVE Antibody Screen NEGATIVE Assessment/Plan - Problem List (1) S/P section Impression: 26-year-old day 1 status post primary section at 36 weeks due to contractions in the setting of a prior uterine surgery. Postop day 1- meeting post operative milestones. Vital stable. Will DC Miller and encourage ambulation. Elevated blood pressuresmildly elevated blood pressures were noted just prior to delivery. Patient also had brisk reflexes. Blood pressures now within nor mal limits. We will continue to monitor.
[2022-01-05] MEDS ORDERED: ENOXAPARIN 40 MG/0.4 ML SYRINGE SUBQ SCH (09:00)
[2022-01-05] MEDS ORDERED: DOCUSATE SODIUM 100 MG CAPSULE PO SCH (09:00)
[2022-01-05 09:06] LABS: BASOPHILS % (AUTO) 0.1 %; EOSINOPHILS % (AUTO) 0.1 %; HCT - HEMATOCRIT 31.4 % (37.0-47.0); HGB - HEMOGLOBIN 10.7 g/dL (12.0-16.0); LYMPHOCYTES # (AUTO) 1.6 10^3/uL (1.5-3.5); LYMPHOCYTES % (AUTO) 9.2 %; MEAN CORPUSCULAR HEMOGLOBIN 30.3 pg (27.0-31.0); MEAN CORPUSCULAR HGB CONC 34.1 g/dL (32.0-36.0); MEAN PLATELET VOLUME 9.4 fL (7.9-10.8); MONOCYTES # (AUTO) 0.7 10^3/uL (0.0-1.0); MONOCYTES % (AUTO) 3.9 %; NEUTROPHILS % (AUTO) 86.2 %; PLT - PLATELET COUNT 276 10^3/uL (130-450); RED BLOOD COUNT 3.53 10^6/uL (4.20-5.40); RED CELL DISTRIBUTION WIDTH 13.6 % (12.0-15.0); WHITE BLOOD COUNT 17.4 x10^3/uL (4.8-10.8)
[2022-01-05] MEDS: DOCUSATE SODIUM 100 MG CAPSULE PO SCH ×2 (09:08→21:36)
[2022-01-05] MEDS: ENOXAPARIN 40 MG/0.4 ML SYRINGE SUBQ SCH (09:09)
[2022-01-05] MEDS: oxyCODONE 5 MG TABLET PO PRN (09:28)
[2022-01-06] MEDS: DOCUSATE SODIUM 100 MG CAPSULE PO SCH (08:10)
[2022-01-06] MEDS: ACETAMINOPHEN 500 MG TABLET PO SCH (08:10)
[2022-01-06] MEDS: ENOXAPARIN 40 MG/0.4 ML SYRINGE SUBQ SCH (08:11)
[2022-01-06 08:25] VITALS: BP 124/73
--- NOTE | 2022-01-06 08:52 | Discharge Plan ---
Discharge Plan Problem Reviewed?: Yes Disposition: Home, Self Care Condition: Good Diet: Regular Activity Restrictions: Additional Comments Shower Restrictions: No Driving Restrictions: Yes (If taking opioid medications) Instruction Topics: C Section Dc No Smoking: If you smoke, Please STOP! Call for help. Follow-up with: Montana Harry MD [Provider Admit Priv/Credential] -
--- NOTE | 2022-01-06 08:53 | DISCHARGE SUMMARY ---
Discharge Summary Admit Date: 01/04/22 Discharge Date: 01/06/22 Discharging Provider: Montana Harry MD Code Status: Attempt Resuscitation Condition at Discharge: Good Discharge Disposition: 01 Home, Self Care - DIAGNOSES Admission Diagnoses: 36-weeks gestation Previous myomectomy labor Category 2 tracing Discharge Diagnoses with Status of Each Condition: 36-weeks gestation Previous myomectomy labor Category 2 tracing Status post primary low transverse section - HPI History of Present Illness: Subjective Patient reports she is doing well. Lochia appropriate. Denies heavy bleeding. Ambulating. Pelvic and abdominal pain well-controlled. Tolerating oral intake. Diet: Regular. Voiding without difficulty. Passing flatus. Denies BM. transferred or difficulty transitioning Pumping slowly, but overall well. Denies feeling lightheaded, dizzy or excessively fatigued. Objective General: Alert, oriented, no apparent distress. Cardiovascular: Regular rate. Regular rhythm. Lungs: No increased work of breathing. Abdomen: Uterus firm. Below umbilicus. No guarding or rebound. Incision: Clean, dry, and intact. - HOSPITAL COURSE Hospital Course: Patient is a 26-year-old G1 now P1 status post primary low-transverse section. She had an abdominal myomectomy for large fibroid last year and was planning on an early term delivery, however patient began hai at 36 weeks and upon presentation had tachycardia. Due to the contractions and category 2 tracing, patient was admitted for primary low-transverse section. section was uncomplicated and course for patient was normal. Her had to be transferred due to difficulty transitioning, patient was eager to discharge to be with baby was discharged on day 2. weight: 3239 g - ALLERGIES Allergies/Adverse Reactions: Allergies Allergy/AdvReac Type Severity Reaction Status Date / Time No Known Drug Allergies Allergy Verified 01/04/22 19:57 - MEDICATIONS Home Medications: Ambulatory Orders Medication Instructions Recorded Confirmed Acetaminophen [Acetaminophen Extra 1,000 mg PO Q8H PRN #60 tablet 01/06/22 Strength] Docusate Sodium 100Mg Capsule 100 - 200 mg PO BID PRN #60 cap 01/06/22 [Colace 100Mg Capsule] Ibuprofen [Motrin] 600 mg PO Q6H PRN #30 tab 01/06/22 oxyCODONE [Roxicodone] 2.5 - 5 mg PO Q4H PRN #24 tablet 01/06/22 - LABS Result Diagrams: 01/05/22 09:02 01/04/22 18:20 - FOLLOW UP Follow Up: With Dr. Harry at [facility] in 1 week - TIME SPENT Time Spent in Discharge (Minutes): 25
[2022-01-06] MEDS: oxyCODONE 5 MG TABLET PO PRN (10:08)
--- NOTE | 2022-01-06 10:56 | Labor Flowsheet ---
Labor Flowsheet Datetime Report Generated by CPN: 01/06/2022 10:56 Datetime: 01/04/2022 18:24 UTERINE ACTIVITY Monitor Mode: External Frequency (min): 0 Resting Tone (Palpate): Relaxed ASSESSMENT A Monitor Mode: Telemetry FHR Baseline Rate : 160 Variability: Moderate 6-25 bpm Accelerations: 15X15 Decelerations: None Category: Category I Oxygen Method: Room Air Datetime: 01/04/2022 18:21 MEDICATIONS Steroids: Celestone 12mg IM Datetime: 01/04/2022 18:05 PATIENT CARE IV/Blood Work: IV Bolus Given ml @ 300; IV Infusing per Order Datetime: 01/04/2022 18:00 VITAL SIGNS NBP Sys/Eliana/Mean (mmHg): 132 : 92 : 100 Pulse: 133 Quality: Mild Duration (sec): 60-100 Pattern: Normal: <= 5 Contractions in 10 Minutes FHR Baseline Changes: Tachycardia Comments: Unable to establish baseline COMMUNICATION LaborFlag: Labor
== END 2022-01-06 10:30 | disposition home or self-care (01) | DRG 788 ==
LOC: WFO 16:03 → FBP 16:04 → WFO 16:33 → FBP 16:34 → OBSVTOIN 17:40 → FBP 19:15
PROVIDERS: ADMIT Obstetrics & Gynecology; ATTEND Obstetrics & Gynecology
PROC: 10D00Z1 Extraction of Products of Conception, Low, Open Approach (ICD-10-PCS; principal; 2022-01-04 18:00)
DX: O60.14X0 Preterm labor third trimester with preterm delivery third trimester, not applicable or unspecified (principal); Z3A.36 36 weeks gestation of pregnancy; Z37.0 Single live birth; O99.892 Other specified diseases and conditions complicating childbirth; O76 Abnormality in fetal heart rate and rhythm complicating labor and delivery; R00.0 Tachycardia, unspecified; Z98.890 Other specified postprocedural states
CPT/HCPCS: 36415; 80053; 81003; 82570; 84156; 85025; 86850; 86900; 86901; 99215; A9270; J0131; J1650; J2274; J7040; J7120; 81001; 85027; 87086

== ENCOUNTER 2023-06-22 10:26 | Outpatient (CLI) | payer MEDICAID | END 2023-06-22 10:27 | disposition home or self-care (01) | LOC: LAB 10:26 | PROVIDERS: ATTEND Obstetrics & Gynecology | DX: Z31.69 Encounter for other general counseling and advice on procreation (principal) | CPT/HCPCS: 81220; 81329; 81599 ==

== ENCOUNTER 2023-07-31 08:00 | Outpatient (CLI) | payer MEDICAID ==
[2023-07-31 16:58] LABS: BILIRUBIN,URINE NEGATIVE (NEGATIVE); GLUCOSE, URINE (UA) NEGATIVE (NEGATIVE); KETONES,URINE (UA) NEGATIVE (NEGATIVE); LEUKOCYTE ESTERASE, URINE TRACE (NEGATIVE); NITRITE,URINE NEGATIVE (NEGATIVE); OCCULT BLOOD,URINE LARGE (NEGATIVE); PROTEIN,URINE NEGATIVE (NEGATIVE); UROBILINOGEN,URINE 0.2 (NORMAL) E.U./dL (NORMAL)
[2023-07-31 16:59] LABS: CLARITY,URINE CLEAR (CLEAR)
[2023-07-31 17:08] LABS: BACTERIA,URINE Few /HPF (None Seen); SQUAMOUS EPITHELIAL CELL,UR FEW Squamous (<= Few)
== END 2023-07-31 23:59 | disposition home or self-care (01) ==
LOC: LAB 08:00
PROVIDERS: ATTEND Nurse Practitioner
DX: R30.0 Dysuria (principal)
CPT/HCPCS: 81001; 87086; 87181

== ENCOUNTER 2024-04-07 09:13 | Outpatient (CLI) | payer OTHER ==
[2024-04-07 10:07] LABS: THYROID STIMULATING HORMONE 1.66 uIU/mL (0.34-5.60)
[2024-04-07 10:16] LABS: PROLACTIN 8.02 ng/mL
[2024-04-07 11:19] LABS: ESTIMATED AVERAGE GLUCOSE 97 mg/dL (70-100)
[2024-04-08 08:10] LABS: ESTRADIOL 34.7 pg/mL (.); SEX HORM BINDING GLOB SERUM 25.5 nmol/L (24.6-122.0)
== END 2024-04-07 09:14 | disposition home or self-care (01) ==
LOC: LAB 09:13
PROVIDERS: ATTEND Obstetrics & Gynecology
DX: N91.1 Secondary amenorrhea (principal)
CPT/HCPCS: 36415; 82166; 82627; 82670; 83001; 83002; 83036; 83498; 84146; 84270; 84403; 84443

== ENCOUNTER 2024-04-14 08:16 | Outpatient (CLI) | payer BC, MEDICAID ==
--- NOTE | 2024-04-14 21:10 | Ultrasound Report ---
PROCEDURE: Pelvic w/Transvaginal INDICATIONS: AMENORRHEA TECHNIQUE: Real-time scanning was performed of the pelvic organs, with image documentation. Additional endovagi nal scanning was necessary due to incomplete visualization of the adnexal and endometrial structures by transabdominal scanning. COMPARISON: None. FINDINGS: Uterus: Uterus is anteverted and normal in size at 7.5 x 3.2 x 3.7 cm. The myometrium is homogeneou s. The endometrium measures 6 mm in combined thickness. No abnormal vascularity can be seen along t he endometrial stripe. Ovaries: The right ovary measures 2.5 x 2 x 1.7 cm, with a calculated ovarian volume of 4.3 cc. The left ovary measures 2.2 x 2.1 x 2 cm, with a calculated ovarian volume of 4.6 cc. The ovaries have a normal sonographic appearance. Less than 12 follicles can be seen in each ovary. No adnexal macie s are seen. No cystic lesions measuring greater than 3 cm. Other: No pathologic free abdominal or pelvic fluid. IMPRESSION: Pelvic ultrasound within normal limits, without a cause of the patient's presenting history identifie d. Reviewed by: Jonnie Walters MD on 04/14/2024 8:09 PM NEY Approved by: Jonnie Walters MD on 04/14/2024 8:09 PM NEY Station ID: [id number]
== END 2024-04-14 08:17 | disposition home or self-care (01) ==
LOC: DI 08:16
PROVIDERS: ATTEND Obstetrics & Gynecology
DX: N91.1 Secondary amenorrhea (principal); Z87.42 Personal history of other diseases of the female genital tract